=== PATIENT | female | born 1930 | race Caucasian/White ===

== ENCOUNTER 2017-03-31 10:04 | Inpatient (IN) | payer OTHER ==
[~2017-03-31] VITALS: Ht 160 cm; Wt 49.0 kg
[2017-03-31] VITALS (13 sets, daily range): BP systolic 103–134; BP diastolic 56–93
--- NOTE | 2017-03-31 10:05 | NUR ---
BIB [facility] D/T RESPIRATORY DISTRESS AT HOME. PATIENT C/O SOB, BREATHING TREATMENT GIVEN WITH NO RELIEF AT HOME. PATIENT ARRIVES ON CPAP ON ROUTE. O2 SAT 83% ON ROOM AIR. PLACED ON BIPAP IN ER PER DR. JAY. TOLERATING WELL, SATURATION UP TO 93%. VITALS STABLE. SAFETY AND COMFORT MEASURES IN PLACE. WILL CONTINUE TO MONITOR.
--- NOTE | 2017-03-31 10:15 | NUR ---
NEW IV STARTED ON RFA, 18 G. BLOOD DRAWN AND SENT TO LAB.
[2017-03-31] MEDS ORDERED: IPRATROPIUM NEB FS 0.5 MG/2.5 ML AMPUL.NEB NEB ONE (10:30)
[2017-03-31] MEDS ORDERED: methylPREDNISolone SOD SUCC 125 MG/2ML VIAL IV ONE (10:30)
[2017-03-31] MEDS ORDERED: ALBUTEROL FS 2.5 MG/3 ML VIAL.NEB NEB ONE (10:30)
--- NOTE | 2017-03-31 10:31 | NUR ---
RT RECD PT ALERT AWAKE ORIENTED ON CPAP SATTING 88% ON 24HR 2L 02 AT HOME HX OF COPD. PLACED PT ON BIPAP PER DR JAY 02/08 40% 02 RATE 14 SATTING 94% PT SEEMS COMFORTABLE COMPLAINED OF THE MASK BEING TIGHT. WILL CONTINUE TO MONITOR Addendum: 03/31/17 at 1034 by KARTHIK MEEKS RT Amended: Links added.
[2017-03-31] MEDS ORDERED: methylPREDNISolone SOD SUCC 125 MG/2ML VIAL ONE (10:34)
--- NOTE | 2017-03-31 10:39 | NUR ---
PATIENT MEDICATED PER MD ORDERS.
[2017-03-31 10:46] LABS: BASOPHILS # (AUTO) 0.1 /CMM (0.0-0.2); BASOPHILS % (AUTO) 0.9 % (0.0-2.0); EOSINOPHILS # (AUTO) 0.1 /CMM (0.0-0.7); EOSINOPHILS % (AUTO) 0.8 % (0.0-6.0); HEMATOCRIT 37 % (33-45); HEMOGLOBIN 12.7 g/dL (11.5-14.8); LYMPHOCYTES # (AUTO) 1.3 /CMM (0.8-4.8); LYMPHOCYTES % (AUTO) 16.6 % (20.0-44.0); MEAN CORPUSCULAR HEMOGLOBIN 31 PG (26.0-33.0); MEAN CORPUSCULAR HGB CONC 34 g/dl (31.0-36.0); MEAN CORPUSCULAR VOLUME 92 fL (82-100); MONOCYTES # (AUTO) 0.8 /CMM (0.1-1.30); NEUTROPHILS # (AUTO) 5.2 /CMM (1.8-8.9); NEUTROPHILS % (AUTO) 70.7 % (43.0-81.0); RDW COEFFICIENT OF VARIATION 15.2 (11.5-15.0); RED BLOOD CELL COUNT(AUTO) 4.05 MIL/uL (4.0-5.2); WHITE BLOOD COUNT (AUTO) 7.5 K/uL (4.3-11.0)
[2017-03-31] MEDS ORDERED: IPRATROPIUM NEB FS 0.5 MG/2.5 ML AMPUL.NEB ONE (10:46)
[2017-03-31] MEDS ORDERED: ALBUTEROL FS 2.5 MG/3 ML VIAL.NEB ONE (10:46)
[2017-03-31 10:54] LABS: PLATELET COUNT (AUTO) 208 /CMM (150-450)
[2017-03-31 10:59] LABS: CALCIUM, SERUM 9.1 mg/dL (8.5-10.1); CARBON DIOXIDE 29 mmol/L (21-32); CHLORIDE 101 mmol/L (98-107); CREATININE 0.5 mg/dL (0.6-1.3); GLUCOSE 104 mg/dL (74-106); POTASSIUM 3.9 mmol/L (3.5-5.1); SODIUM SERUM 136 mmol/L (136-145); UREA NITROGEN, BLOOD 10 mg/dL (7-18)
[2017-03-31 11:01] LABS: INR 0.88 (0.87-1.13); PROTHROMBIN TIME 9.1 SECS (9.5-12.7)
[2017-03-31 11:05] LABS: ALANINE AMINOTRANSFERASE 14 U/L (12-78); ALBUMIN 3.2 g/dL (3.4-5.0); ALKALINE PHOSPHATASE 101 U/L (46-116); ASPARTATE AMINOTRANSFERASE 17 U/L (15-37); BILIRUBIN,TOTAL 0.3 mg/dL (0.2-1.0); TOTAL PROTEIN, SERUM 6.9 g/dL (6.4-8.2)
[2017-03-31] MEDS ORDERED: TIOT18CA3 IH (11:05)
[2017-03-31] MEDS ORDERED: ALBU2.5V38 IH (11:05)
[2017-03-31] MEDS ORDERED: LEVO88TA5 PO (11:05)
[2017-03-31] MEDS ORDERED: ALPR0.5T PO (11:05)
[2017-03-31] MEDS ORDERED: ALPR1TAB2 PO (11:05)
[2017-03-31] MEDS ORDERED: ASCO500T9 PO (11:05)
[2017-03-31] MEDS ORDERED: DOCU-141 PO (11:05)
[2017-03-31] MEDS ORDERED: OMEP20CA10 PO (11:05)
[2017-03-31] MEDS ORDERED: ALBU18HF2 IH (11:05)
[2017-03-31] MEDS ORDERED: CALC-34 PO (11:05)
[2017-03-31] MEDS ORDERED: DILT180C PO (11:05)
[2017-03-31] MEDS ORDERED: FLUT1DIS5 IH (11:05)
[2017-03-31] MEDS ORDERED: ONDA4TAB8 PO (11:05)
[2017-03-31] MEDS ORDERED: THEO300C4 PO (11:05)
[2017-03-31 11:07] LABS: TROPONIN I < 0.017 ng/mL (0.00-0.056)
[2017-03-31 11:32] LABS: ABG BASE EXCESS -1.1 mmol/L; ABG OXYGEN SATURATION 94.3 % (92.0-98.5); ABG PCO2 45.8 mmHg (35.0-45.0); ABG PO2 75.8 mmHg (75.0-100.0); AaDO2 156.7 mmHg; COHb 0.7 % (0.5-1.5); MetHb 0.3 % (0.0-1.5); O2Hb 93.4 % (94.0-97.0); SITE, ABG Left Radial; VENT MODE, BG BIPAP 15/5 40%
--- NOTE | 2017-03-31 11:45 | NUR ---
ATTEMPTED TO WEAN PATIENT OFF CPAP TO NASAL CANNULA. PATIENT DID NOT TOLERATED 5L OXYGEN VIA NC. O2 SATURATION DROPPED TO 85%. PATIENT PLACED BACK ONTO CPAP AT THIS TIME, MD AWARE.
[2017-03-31] MEDS ORDERED: AZITHROMYCIN 500 MG in IV D5W 250 ML IV ONE (12:00)
[2017-03-31] MEDS ORDERED: CEFTRIAXONE 1GM BAG (ER ONLY) 50 ML IV ONE (12:00)
--- NOTE | 2017-03-31 12:08 | NUR ---
PER DR. JAY, HOLD OFF ON URINE COLLECTION VIA CATHETER AT THIS TIME. NOT REQUIRED.
--- NOTE | 2017-03-31 12:09 | NUR ---
RT ABG NORMAL INFORMED DR CALLOWAY ASK TO WEAN PT PLACED PT ON NC 4L SATURATION 85% NOT TOLERATING PLADCE PT BACK TO CPAP 5 RATE 14 Addendum: 03/31/17 at 1213 by KARTHIK MEEKS RT 40% 02 WILL CONTINUE TO MONITOR Addendum: 03/31/17 at 1213 by KARTHIK MEEKS RT Amended: Links added.
--- NOTE | 2017-03-31 12:24 | NUR ---
ICU 260
--- NOTE | 2017-03-31 13:05 | NUR ---
SECOND IV STARTED ON LFA, 18 G FOR ICU ADMISSION.
--- NOTE | 2017-03-31 13:24 | NUR ---
REPORT GIVEN TO BRYAN ANDINO FOR [facility] ICU 260
[2017-03-31] MEDS ORDERED: ONDANSETRON HCL/PF 4 MG/2 ML VIAL IVP PRN (13:30)
--- NOTE | 2017-03-31 13:35 | NUR ---
ICU/RN: Pt received from ER via gurney on NRB, breathing even and unlabored at rest O2 sat 94%, SOB noted upon gurney to bed transfer. A&Ox4, denies pain and comfort. States "I came here because I was so short of breath the past few days even with the O2 I have at home. My chest was feeling really tight too." IV on R and L FA #18 patent and flushed. Skin is intact with L monzon bruise noted, per pt "I think I hit it against the commode near my bed." For full nsg assessment refer to nsg flowsheet. Oriented to unit, use of call light, verbalized understanding. Will cont to monitor pt.
[2017-03-31] MEDS: ALBUTEROL FS 2.5 MG/0.5 ML VIAL.NEB NEB SCH ×2 (13:57→19:34)
[2017-03-31] MEDS: IPRATROPIUM NEB FS 0.5 MG/2.5 ML AMPUL.NEB NEB SCH ×2 (13:57→19:34)
--- NOTE | 2017-03-31 14:00 | NUR ---
ICU/RN: Pt post-breathing tx. With moderate amount of thick yellow secretions. Placed on O2 6L/via NC, O2 sat 92-94%. Denies discomfort at this time. Agreeable with POC.
[2017-03-31] MEDS: GUAIFENESIN LA 600 MG TABLET.SA PO SCH ×2 (14:31→20:43)
[2017-03-31] MEDS: methylPREDNISolone SOD SUCC 125 MG/2ML VIAL IV SCH ×2 (14:31→17:16)
[2017-03-31 15:22] LABS: ABG BASE EXCESS 2.1 mmol/L; ABG OXYGEN SATURATION 94.2 % (92.0-98.5); ABG PCO2 47.9 mmHg (35.0-45.0); ABG PH 7.382 (7.350-7.450); ABG PO2 70.7 mmHg (75.0-100.0); AaDO2 188.4 mmHg; COHb 0.2 % (0.5-1.5); MetHb 0.5 % (0.0-1.5); O2Hb 93.5 % (94.0-97.0); SITE, ABG Right Radial; VENT MODE, BG NC AT 6LPM
[2017-03-31] MEDS: ACETAMINOPHEN 325 MG TABLET PO PRN (17:52)
--- NOTE | 2017-03-31 18:00 | NUR ---
ICU/RN: Pt desaturates with turning and repositioning; SOB upon exertion. Educated on relaxation techniques. Verbalized understanding.
--- NOTE | 2017-03-31 18:29 | NUR ---
ICU/RN: Daughter at bedside; assisting pt with ADLs. SPO2 in 90's.
--- NOTE | 2017-03-31 19:24 | NUR ---
ICU/RN: Pt sitting in bed, watching tv and eating; in no distress. Pt states some SOB with exertion and discomfort when coughing. Spo2 maintained >92%. Bedside report given to BRYAN Fisher for [facility].
--- NOTE | 2017-03-31 21:05 | NUR ---
SKIVER WELT END DF RECEIVED PT TO ROOM#262 PT A/OX4 CALM,COOPERATIVE FOLLOWS COMMANDS. PT ON N/C @ 6 LPM WITH O2 SAT OF 93-96%. PT WITH SR-ST ON MONITOR RATE OF 101BPM, PT DENIES CHEST PAIN. VSS.NAD NOTED.
[2017-04-01] VITALS (20 sets, daily range): BP systolic 96–153; BP diastolic 52–98
--- NOTE | 2017-04-01 00:03 | NUR ---
LUMBER PLANER DF PT WITH DECREASED OXYGEN SATURATION OF 86% PT A/OX4 PT WAS SLEEPING DURING DSAT EPISODES. PT STARTED ON BIPAP RT ALEKSEY AT BEDSIDE TO ASSIST PT WITH BIPAP THERAPY.
[2017-04-01] MEDS: ALBUTEROL FS 2.5 MG/0.5 ML VIAL.NEB NEB SCH ×4 (01:11→19:52)
[2017-04-01] MEDS: IPRATROPIUM NEB FS 0.5 MG/2.5 ML AMPUL.NEB NEB SCH ×4 (01:11→19:52)
--- NOTE | 2017-04-01 04:25 | NUR ---
PALEOLOGY TEACHER DF PT REQUESTING TO HAVE BIPAP REMOVED. PT MAY NO LONGER TOLERATE BIPAP PT ON N/C @ 5LPM WITH 02 SAT OF 90-93% PT DENIES SOB/CHEST PAIN.
[2017-04-01 05:02] LABS: BASOPHILS % (AUTO) 0.1 % (0.0-2.0); HEMATOCRIT 34 % (33-45); HEMOGLOBIN 11.4 g/dL (11.5-14.8); LYMPHOCYTES # (AUTO) 0.4 /CMM (0.8-4.8); LYMPHOCYTES % (AUTO) 11.4 % (20.0-44.0); MEAN CORPUSCULAR HEMOGLOBIN 32 PG (26.0-33.0); MEAN CORPUSCULAR HGB CONC 34 g/dl (31.0-36.0); MEAN CORPUSCULAR VOLUME 93 fL (82-100); MONOCYTES # (AUTO) 0.1 /CMM (0.1-1.30); MONOCYTES % (AUTO) 3.6 % (2.0-12.0); NEUTROPHILS # (AUTO) 2.9 /CMM (1.8-8.9); NEUTROPHILS % (AUTO) 84.9 % (43.0-81.0); PLATELET COUNT (AUTO) 211 /CMM (150-450); RDW COEFFICIENT OF VARIATION 16.1 (11.5-15.0); WHITE BLOOD COUNT (AUTO) 3.4 K/uL (4.3-11.0)
[2017-04-01 05:37] LABS: ALANINE AMINOTRANSFERASE 15 U/L (12-78); ALBUMIN 2.9 g/dL (3.4-5.0); ALKALINE PHOSPHATASE 84 U/L (46-116); ASPARTATE AMINOTRANSFERASE 11 U/L (15-37); BILIRUBIN,TOTAL 0.2 mg/dL (0.2-1.0); CALCIUM, SERUM 8.9 mg/dL (8.5-10.1); CARBON DIOXIDE 29 mmol/L (21-32); CHLORIDE 104 mmol/L (98-107); CREATININE 0.6 mg/dL (0.6-1.3); GLUCOSE 148 mg/dL (74-106); MAGNESIUM 1.9 mg/dL (1.8-2.4); POTASSIUM 4.3 mmol/L (3.5-5.1); SODIUM SERUM 140 mmol/L (136-145); TOTAL PROTEIN, SERUM 6.5 g/dL (6.4-8.2); UREA NITROGEN, BLOOD 16 mg/dL (7-18)
--- NOTE | 2017-04-01 06:56 | NUR ---
TOLL MECHANIC DF PT REQUESTS HER HHN TMT NOW, I ASKED ALEKSEY RT AND HE WILL ENDORSE TMT TO DAYSHIFT.INFORMED PT
--- NOTE | 2017-04-01 08:00 | NUR ---
ICU/RN: Pt tolerating breathing Tx, no distress noted. Pt requesting home dose of Xanax to help with anxiety. paged for orders.
[2017-04-01] MEDS: GUAIFENESIN LA 600 MG TABLET.SA PO SCH ×2 (08:20→21:52)
[2017-04-01] MEDS: methylPREDNISolone SOD SUCC 125 MG/2ML VIAL IV SCH ×3 (08:21→16:07)
--- NOTE | 2017-04-01 09:00 | NUR ---
ICU/RN: Due meds administered with breakfast per pt request. Assisted to BSC, tolerated transfer with minimal SOB with exertion. BMx1 noted. Oriented to POC, verbalized understanding.
[2017-04-01] MEDS ORDERED: ALPRAZOLAM 0.5 MG TABLET PO SCH (09:30)
[2017-04-01] MEDS ORDERED: CEFTRIAXONE 1 G in IV D5W 50 ML IV SCH (13:00)
[2017-04-01] MEDS ORDERED: AZITHROMYCIN 500 MG in IV D5W 250 ML IV SCH (13:00)
--- NOTE | 2017-04-01 14:45 | NUR ---
ICU/RN: Pt with SpO2 85-88% on O2 4L/min via NC, 120's on cardiac monitor technician; breathing tx administered. Pt stated relief however c/o anxiety. Informed Dr Bonilla, pt to be restarted on pt's Diltazem dose from home.
[2017-04-01] MEDS ORDERED: DILTIAZEM HCL CD 180 MG PO SCH (15:00)
[2017-04-01] MEDS: ACETAMINOPHEN 325 MG TABLET PO PRN (15:01)
--- NOTE | 2017-04-01 16:00 | NUR ---
ICU/RN: Pt complaining of anxiety, states "I need my Xanax to relax, Im starting to get all jittery again." Xanax administered as ordered.
[2017-04-01] MEDS: ALPRAZOLAM 0.25 MG TABLET PO PRN (16:07)
--- NOTE | 2017-04-01 16:45 | NUR ---
ICU/RN: Pt transferred to [facility] Rm 101 in stable condition. Pt received by BRYAN Jesus at bedside. Pt denies SOB and discomfort. Xanax and Tylenol effective in providing relief.
--- NOTE | 2017-04-01 16:45 | NUR ---
RN NOTE PATIENT TRANSFERRED TO ROOM 101 FROM ICU REPORT GIVEN BY PURCHASING AND CLAIMS SUPERVISOR MENDEL , PATIENT PRESENTS ALERT AND ORIENTED X 3-4 PATIENT IS CURRENTLY ON 4L NC O2 SATURATING AT 94. PATIENT IS ABLE TO MAKE NEEDS KNOWN IV CLEAN DRY AND INTACT NO IV FLUID CURRENTLY RUNNING PATIENT STATES SHE IS A [place] PATIENT. PATIENT IS IN STABLE CONDITION AT THIS TIME
--- NOTE | 2017-04-01 16:48 | NUR ---
Patient is a [facility] member and is stable to transfer per MD. Spoke with Jazzy ALMARAZ at [facility] [phone], clinicals and dc summary faxed for review. [facility] will contact nursing station once bed is available. Spoke with garry Adams- made aware and agreed with transfer. Patient aware. Addendum: 04/01/17 at 2217 by MARYLU EDMONDSON RN Amended: Links added.
--- NOTE | 2017-04-01 19:30 | NUR ---
[facility] RN INITIAL NOTES RECEIVED PATIENT AWAKE A/OX4, ABLE TO MAKE NEEDS KNOWN. DENIES PAIN OR DISCOMFORT AT THIS TIME. NO RESPIRATORY DISTRESS NOTED, ON 6LPMO2 VIA NC. SKIN WARM AND DRY TO TOUCH. ON TELE MONITOR SR 98. HOB ELEVATED. SIDE RAILS UP AND LOCKED. BED KEPT AT LOWEST POSITION. CALL LIGHT KEPT WITHIN EASY REACH. PER REPORT, PATIENT TO BE TRANSFERRED TO [place] ONCE A BED IS AVAILABLE. WILL CONTINUE TO MONITOR.
--- NOTE | 2017-04-01 19:32 | NUR ---
RN CLOSING NOTE PATIENT NEEDS ASSESSES AND ATTENDED PATIENT INFORMED OF DISCHARGE/ TRANSFER TO [place] PATIENT MEAL TRAY PICKED UP FROM [facility] AND ENDORSED TO HELP FEED TO PM RN , PATIENT STABLE NO SOB NOTED ON 6 L NC TOLERATING WELL O2 96 PATIENT PHONE IS BEING CHARGE AT NURSES STATION PATIENT AND PM RN NOTIFIED , PATIENT TRANSFER CD, COPY OF THE CHART,ADDITIONAL REQUESTED INFORMATION PLACED IN TRANSFER FOLDER . PATIENT STABLE AT THIS TIME RN ENDORSED CARE TO PM RN
[2017-04-01] MEDS ORDERED: ALPRAZOLAM 1 MG TABLET PO SCH (22:00)
[2017-04-02] VITALS: BP 100/52
--- NOTE | 2017-04-02 01:17 | NUR ---
[facility] RN NOTES RECEIVED A CALL FROM BUTANE COMPRESSOR OPERATOR ANISHA, BED IS READY FOR PATIENT AT [facility]. WITH ETA ONE HOUR FOR APPELLATE COURT CLERK. PATIENT TO GO TO ROOM 5220. PATIENT INFORMED REGARDING TRANSFER.
[2017-04-02] MEDS: ALBUTEROL FS 2.5 MG/0.5 ML VIAL.NEB NEB SCH (01:18)
[2017-04-02] MEDS: IPRATROPIUM NEB FS 0.5 MG/2.5 ML AMPUL.NEB NEB SCH (01:19)
--- NOTE | 2017-04-02 01:53 | NUR ---
REPORT GIVEN TO FANG FROM [facility].
[2017-04-02 02:00] VITALS: BP 113/68
[2017-04-02] MEDS: ALPRAZOLAM 0.25 MG TABLET PO PRN (02:45)
--- NOTE | 2017-04-02 03:00 | NUR ---
[facility] RN CLOSING NOTES PATIENT IN STABLE CONDITION. PRN XANAX GIVEN PER REQUEST. IN NO RESPIRATORY DISTRESS. ALL DUE MEDS GIVEN. ALL BELONGINGS WITH PATIENT. ALL PAPER WORK GIVEN TO EMT FROM [facility]. PATIENT LEFT VIA GURNEY.
== END 2017-04-02 03:00 | disposition short-term general hospital (02) | DRG 189 ==
LOC: ER 10:06 → ICU 12:38 → TELE-TD 04-01 16:19
PROVIDERS: ADMIT Internal Medicine; ATTEND Internal Medicine
PROC: 5A09357 Assistance with Respiratory Ventilation, Less than 24 Consecutive Hours, Continuous Positive Airway Pressure (ICD-10-PCS; principal; 2017-03-31)
DX: J96.21 Acute and chronic respiratory failure with hypoxia (principal); J15.9 Unspecified bacterial pneumonia; J44.0 Chronic obstructive pulmonary disease with (acute) lower respiratory infection; Z99.81 Dependence on supplemental oxygen; J44.1 Chronic obstructive pulmonary disease with (acute) exacerbation; J96.22 Acute and chronic respiratory failure with hypercapnia; I10 Essential (primary) hypertension; Z87.891 Personal history of nicotine dependence
CPT/HCPCS: 36415; 36600; 71045-TC; 80048-TC; 80053-TC; 80076-TC; 82803-TC; 83605-TC; 83735-TC; 84100-TC; 84484-TC; 85025-TC; 85730-TC; 87040-TC; 87081-TC; 94660; 94799-TC; A4606; J0456; J0696; J2930; J7050; J7060; Z7610